=== PATIENT | female | born 1985 | race Caucasian/White ===

== ENCOUNTER 2018-07-19 01:38 | Emergency (ER) | payer OTHER ==
[2018-07-19 01:45] VITALS: O2SAT 100
[2018-07-19] MEDS ORDERED: Aluminum Hydroxide/Magnesium Hydroxide Susp (30 mL) PO STA (02:06)
[2018-07-19] MEDS ORDERED: Sodium Chloride 0.9% 500 ML IV ONE (02:06)
[2018-07-19] MEDS ORDERED: Alum-Mag Hydrox-Simethicone Susp (30 mL) ONE (02:23)
[2018-07-19 02:25] LABS: BASO # 0.1 K/uL (0.0-0.2); BASO % 0.6 % (0.0-2.0); EOS # 0.1 K/uL (0.0-0.7); EOS % 0.8 % (0.0-4.0); HEMOGLOBIN 11.7 g/dL (11.0-16.0); LYMPH % 13.7 % (20.0-40.0); MEAN CELL VOLUME 72.7 fL (81.0-99.0); MEAN CORPUSCULAR HEMOGLOBIN 23.6 pg (27.0-31.0); MEAN CORPUSCULAR HGB CONC 32.5 g/dL (33.0-37.0); MEAN PLATELET VOLUME 8.3 fL (7.2-11.7); MONO % 6.9 % (0.0-10.0); NEUT # 11.6 K/uL (1.8-7.0); RBC 4.96 Mil/uL (3.80-5.20); RED CELL DISTRIBUTION WIDTH 13.7 % (11.5-14.5); WHITE BLOOD COUNT 14.8 K/uL (4.8-10.8)
[2018-07-19 02:46] LABS: ALB/GLOB RATIO 1.2 (1.0-2.1); ALBUMIN 4.7 g/dL (3.5-5.0); ALT/SGPT 20 U/L (9-52); AST/SGOT 20 U/L (14-36); BLOOD UREA NITROGEN 10 mg/dL (7-17); CALCIUM 9.6 mg/dl (8.6-10.4); GFR NON-AFRICAN AMERICAN > 60; LIPASE 162 U/L (23-300)
[2018-07-19 03:28] LABS: HCG,QUALITATIVE URINE NEGATIVE (NEGATIVE)
[2018-07-19 03:29] LABS: SQUAMOUS EPITHIAL 1 /hpf (0-5); URINE AMORPHOUS SEDIMENT RARE /ul (<OCC); URINE BILIRUBIN NEGATIVE (NEGATIVE); URINE BLOOD 2+ (NEGATIVE); URINE CLARITY Hazy (Clear); URINE COLOR Yellow (YELLOW); URINE GLUCOSE (UA) NORMAL (Normal); URINE LEUKOCYTE ESTERASE NEG Leu/uL (Negative); URINE PROTEIN NEGATIVE (NEGATIVE); URINE UROBILINOGEN NORMAL mg/dL (0.2-1.0)
--- NOTE | 2018-07-19 04:24 | C.PDOC ---
History Of Present Illness 33 year old female presents to the ED for evaluation of epigastric abdominal pain, nausea and vomiting which began prior to arrival. Patient took a Zantac without relief. She notes her menses started yesterday, and she usually experiences similar symptoms with her pain. Patient denies fever, chills, diarrhea, and dysuria. Time Seen by Provider: 07/19/18 01:46 Chief Complaint (Nursing): Abdominal Pain History Per: Patient History/Exam Limitations: no limitations Onset/Duration Of Symptoms: Hrs Current Symptoms Are (Timing): Still Present Location Of Pain/Discomfort: Epigastric Radiation Of Pain To:: None Quality Of Discomfort: "Pain" Associated Symptoms: Nausea, Vomiting. denies: Fever, Chills, Diarrhea, Urinary Symptoms Additional History Per: Patient Last Menstral Period: current Past Medical History Reviewed: Historical Data, Nursing Documentation, Vital Signs Vital Signs: Last Vital Signs Temp 98.7 F 07/19/18 04:24 Pulse 67 07/19/18 04:24 Resp 16 07/19/18 04:24 BP 107/70 07/19/18 04:24 Pulse Ox 100 07/19/18 04:29 - Medical History PMH: No Chronic Diseases Surgical History: No Surg Hx Family History: States: Unknown Family Hx - Social History Hx Alcohol Use: No Hx Substance Use: No Review Of Systems Constitutional: Negative for: Fever, Chills Gastrointestinal: Positive for: Nausea, Vomiting, Abdominal Pain (epigastric ). Negative for: Diarrhea Genitourinary: Negative for: Dysuria Physical Exam - Physical Exam Appears: Non-toxic, No Acute Distress Skin: Normal Color, Warm, Dry Head: Atraumatic, Normacephalic Eye(s): bilateral: Normal Inspection Oral Mucosa: Moist Neck: Supple Chest: Symmetrical, No Deformity, No Tenderness Cardiovascular: Rhythm Regular, No Murmur Respiratory: Normal Breath Sounds, No Rales, No Rhonchi, No Wheezing Gastrointestinal/Abdominal: Soft, Tenderness (mild, epigastric ), No Guarding, No Rebound, No Other (suprapubic tenderness ) Back: No CVA Tenderness Extremity: Normal ROM, Capillary Refill (less than 2 seconds ) Neurological/Psych: Oriented x3, Normal Speech, Normal Cognition ED Course And Treatment - Laboratory Results Result Diagrams: 07/19/18 02:20 07/19/18 02:20 O2 Sat by Pulse Oximetry: 100 (on RA) Pulse Ox Interpretation: Normal Progress Note: Bloodwork and urinalysis ordered and reviewed. Maalox PO, Zofran IVP, Pepcid IVP and IV Fluids given. Patient is still complaining of pain after being given medication. Toradol IVP given. On re-examination, patient is resting comfortably, showing no signs of distress and reports an improvement in her symptoms. She is advised to follow up with her PMD within 1- 2 days for further evaluation. Return if symptoms worsen. Disposition - Disposition Referrals: at [facility] [Outside] Disposition: HOME/ ROUTINE Disposition Time: 04:27 Condition: STABLE Additional Instructions: Please follow up with PMD Continue PO zantac Tylenol for pain Take medications as directed Return to ER if worse Prescriptions: Ondansetron [Zofran Odt] 4 mg PO TID #10 odt Instructions: Gastritis (DC), Menstrual Cramps (DC) Forms: [facility] (Kazakh) - Clinical Impression Clinical Impression: Abdominal pain - PA / [employer] / Resident Statement MD/DO has reviewed & agrees with the documentation as recorded. - Scribe Statement The provider has reviewed the documentation as recorded by the Scribe (Princess Menjivar) All medical record entries made by the Scribe were at my direction and personally dictated by me. I have reviewed the chart and agree that the record accurately reflects my personal performance of the history, physical exam, medical decision making, and the department course for this patient. I have also personally directed, reviewed, and agree with the discharge instructions and disposition.
[2018-07-19 04:25] VITALS: BP 107/70; PULSE 67; RESP 16; TEMP 98.7
== END 2018-07-19 04:33 | disposition home or self-care (01) ==
LOC: C.ER 01:38
DX: R10.13 Epigastric pain (principal)
CPT/HCPCS: 80053; 81001; 83690; 84703; 85025; 96361; 96374; 96375; 99285; J1885; J2405; J7040